=== PATIENT | female | born 1950 | race Caucasian/White ===

== ENCOUNTER 2018-10-14 02:30 | Emergency (ER) | payer OTHER, BC ==
[2018-10-14 03:19] VITALS: BP 153/79; PULSE 68; TEMP 98.2; BMI 23.8
[2018-10-14] MEDS ORDERED: KETOROLAC TROMETHAMINE 30 MG/1 ML VIAL IVPUSH ONE (03:30)
[2018-10-14] MEDS ORDERED: ONDANSETRON 4 MG/2 ML VIAL ONE (03:39)
[2018-10-14] MEDS ORDERED: KETOROLAC TROMETHAMINE 30 MG/1 ML VIAL ONE (03:39)
[2018-10-14] MEDS ORDERED: ONDANSETRON 4 MG/2 ML VIAL IVPUSH ONE (03:39)
--- NOTE | 2018-10-14 03:44 | PDOC ---
History of Present Illness - General Chief Complaint: Pain, Acute Stated Complaint: BACK PAIN - History of Present Illness Initial Comments: Natasha Lindquist is a 68yo woman with a PMH of HTN and HLD who presents with 8/ 10 right flank pain that radiates to the right groin. She states that she felt well until about 9pm last night, at which point she started having pain. The pain has been constantly present since it began, but the severity/intensity occurs in waves and increases from about a 7/10 to 10/ 10. The pain radiates around to the right groin. Ms Lindquist has also had nausea and multiple episodes of vomiting overnight. She has not had fevers, chills, abdominal pain, change in bowel habits and also denies dysuria, hematuria, urgency or frequency. She has not taken any medication for pain because of the frequent vomiting, and the pain was so severe that she wanted to be evaluated immediately. Ms Lindquist does report a previous kidney stone years ago, but she remembers the pain from that as being worse than the current pain. Past History - Past Medical History Allergies/Adverse Reactions: Allergies Allergy/AdvReac Type Severity Reaction Status Date / Time No Known Drug Allergies Allergy Unverified 10/14/18 02:58 Home Medications: Ambulatory Orders Enalapril Maleate 10 mg PO DAILY #90 02/21/15 Rosuvastatin Calcium [Crestor] 10 mg PO DAILY #90 02/21/15 Zoledronic Acid/Man/Water [Reclast 5 mg/100 ml -] 5 mg IV MONTHLY 02/21/15 Cholecalciferol (Vitamin D3) [Vitamin D3] 1,000 unit PO DAILY 03/08/15 Multivitamins [Multivit (RH Formulary)] 1 tab PO DAILY 03/08/15 Anemia: No Asthma: No Cancer: Yes (BREAST(RIGHT)) Cardiac Disorders: No CVA: No COPD: No CHF: No Dementia: No Diabetes: No GI Disorders: Yes (HEARTBURN) Disorders: No HTN: Yes Hypercholesterolemia: Yes Liver Disease: No Seizures: No Thyroid Disease: No - Surgical History Abdominal Surgery: Yes (INCISIONAL HERNIA) Appendectomy: No Cardiac Surgery: No Cholecystectomy: No Lung Surgery: No Neurologic Surgery: No Orthopedic Surgery: No - Suicide/Smoking/Psychosocial Hx Smoking History: Never smoked Have you smoked in the past 12 months: No If you are a former smoker, when did you quit?: 30 YEARS Information on smoking cessation initiated: No Hx Alcohol Use: No Drug/Substance Use Hx: No Substance Use Type: None Hx Substance Use Treatment: No Review of Systems - Review of Systems Comments:: General: No fevers, no chills, no weight or appetite change, no malaise HEENT: No changes in vision, no changes in hearing, no congestion, no sore throat CV: No chest pain, no palpitations, no LE edema Pulm: No SOB, no cough, no wheezing GI: No nausea or vomiting, no change in bowel habits, no melena : No frequency, no urgency, no dysuria. +right flank pain Musc: No back pain, no joint swelling, no recent injury Skin: No rash, no lesions, no erythema Endo: No excessive thirst, no heat/cold intolerance Heme: No unusual bruising or bleeding, no swollen glands Neuro: No syncope, no numbness/tingling, no focal weakness Vasc: No claudication Psych: No recent change in mood, no SI or HI *Physical Exam - Vital Signs Last Vital Signs Temp Pulse Resp BP Pulse Ox 98.2 F 68 22 H 153/79 99 10/14/18 02:58 10/14/18 02:58 10/14/18 02:58 10/14/18 02:58 10/14/18 02:58 - Physical Exam Comments: General: Uncomfortable, writhing on chair, moving between chair and bed HEENT: PERRL, EOMI, MMM, voice normal, normal neck ROM, no LAD Cards: RRR, no murmur appreciated Pulm: Comfortable on room air, clear to auscultation bilaterally Abd: Soft, nontender, nondistended : No CVA tenderness Ext: Atraumatic. No LE edema. ROM intact. Strength 5/5 and equal bilaterally Vasc: Extremities WWP. Palpable radial and pedal pulses bilaterally Skin: Normal color, no rashes or lesions Neuro: A&Ox3, CN grossly intact, normal speech, motor/sensory grossly intact and symmetric Psych: Mood appropriate to situation ED Treatment Course - LABORATORY CBC & Chemistry Diagram: 10/14/18 03:45 10/14/18 03:45 Medical Decision Making - Medical Decision Making 10/14/18 03:36 Natasha Lindquist is a 68yo woman with a PMH of HTN, HLD, and previous kidney stone many years ago who presents with R flank pain that radiates to the R groin and nausea/vomiting since 9pm yesterday. - History and physical exam most consistent with a kidney stone. UA and CT renal ordered to r/o stone. - Could also be UTI, appendicitis, or ovarian pathology. Will also be able to evaluate appendix and ovary on CT - CBC, CMP also sent to r/o abnormalities, infection, LINDA - Toradol and zofran for symptoms - Plan for bedside US once Ms Lindquist is more comfortable 10/14/18 05:25 - Labs reviewed. Slight leukocytosis to 10.4, not concerning. - UA with 1+ blood - CT completed. Shows 5mm right ureteral stone and mild-moderate right hydronephrosis. Also notes large cyst on lower pole of left kidney and multiple hypodense lesions in the liver suggestive of polycystic liver. - Discussed results with Ms Lindquist and her . She feels better following the toradol. Discussed using NSAIDs for pain control at home, encouraging PO fluid intake. Also informed her of the incidental left kidney and liver cysts noted on CT; will refer to nephrology and GI. - Ms Lindquist states understanding and agrees with the plan to discharge home with close follow up. Discussed with Dr Olivas. Chelsey Pichardo PGY1 *DC/Admit/Observation/Transfer Diagnosis at time of Disposition: Ureteral stone with hydronephrosis - Discharge Dispostion Disposition: HOME Condition at time of disposition: Stable Decision to Admit order: No - Referrals Referrals: Lissy Licea MD [Primary Care Provider] - Cayetano Guzman DO [Staff Physician] - Brady Gaytan MD [Staff Physician] - - Patient Instructions Printed Discharge Instructions: DI for Kidney Stones Additional Instructions: Discharge Instructions: - You were seen in the emergency department for right back/side pain that radiated around to the groin. You were found to have a kidney stone. The stone measures 5mm and is located in the right ureter. It is causing - The CT scan that found the kidney stone also noted a cyst on your left kidney as well as several cysts in your liver. Although these are probably not causing you any problems, you should follow up to have them evaluated with specialists. You have been referred to Dr Guzman in GI for the liver cysts. You have been referred to Dr Gaytan in nephrology for the kidney cyst. - For pain control at home, you should take 600mg ibuprofen (3 tablets of regular Advil/Motrin) every 6-8 hours. Make sure you take this medication with food or milk to prevent upset stomach. - If your pain continues for more than 2-3 days, please follow up with your primary physician - Seek medical care if you have severe or worsening pain, noticeable blood in your urine, or you continue vomiting and are unable to keep down food/drink. - Post Discharge Activity
[2018-10-14 03:50] LABS: BASO % 0.5 % (0-2.0); EOS % 0.8 % (0-4.5); HEMATOCRIT 40.5 % (32.4-45.2); LYMPH % 9.4 % (8-40); MCH 31.6 pg (25.7-33.7); MCHC 34.5 g/dl (32.0-36.0); MEAN CELL VOLUME 91.6 fl (80-96); MEAN PLT VOLUME 8.7 fl (7.5-11.1); MONO % 8.8 % (3.8-10.2); NEUT % 80.5 % (42.8-82.8); PLATELET COUNT 190 K/MM3 (134-434); RBC 4.42 M/mm3 (3.60-5.2); RDW 12.6 % (11.6-15.6); WHITE BLOOD COUNT 10.4 K/mm3 (4.0-10.0)
[2018-10-14 04:22] LABS: ALBUMIN 3.8 g/dl (3.4-5.0); ALK PHOS 66 U/L (45-117); ANION GAP 8 MMOL/L (8-16); BILIRUBIN,TOTAL 0.4 mg/dL (0.2-1); BLOOD UREA NITROGEN 16 mg/dL (7-18); CALCIUM 8.7 mg/dL (8.5-10.1); CHLORIDE 109 mmol/L (98-107); CO2 25 mmol/L (21-32); CREATININE 1.1 mg/dL (0.55-1.3); GLUCOSE,RANDOM 124 mg/dL (74-106); POTASSIUM 4.1 mmol/L (3.5-5.1); SGOT/AST 22 U/L (15-37); SGPT/ALT 39 U/L (13-61); SODIUM 142 mmol/L (136-145); TOT PROT 6.4 g/dl (6.4-8.2)
[2018-10-14] MEDS ORDERED: SODIUM CHLORIDE 0.9% 500 ML INFUS.BAG IV ONE (04:28)
--- NOTE | 2018-10-14 04:39 | PDOC ---
Attending Attestation - Resident Resident Name: Chelsey Pichardo - ED Attending Attestation I have performed the following: I have examined & evaluated the patient, The case was reviewed & discussed with the resident, I agree w/resident's findings & plan, Exceptions are as noted - HPI HPI: 10/14/18 04:35 68F with persistent, waxing, waning R flank px, radiating down to the groin. A/ w n/v, denies hematuria, dysuria, discharge - Physicial Exam PE: 10/14/18 04:41 agree with resident exam Abd soft, nt, nd No CVA tenderness - Medical Decision Making 10/14/18 04:41 R sided flank px, radiation to groin, consider nephrolithiasis, ascending gu infection, less likely hepatobiliary pathology f/u labs, consider imaging dispo per clinical course 10/14/18 05:26 5mm R sided stone, incidental liver/L renal cysts f/u gi, gu analgesia, flowmax, out patient tx of stone, f/u gu
[2018-10-14 04:56] LABS: URINE APPEARANCE CLEAR; URINE BILIRUBIN NEGATIVE (<2.0 mg/dL); URINE COLOR COLORLESS; URINE GLUCOSE (UA) NEGATIVE (NEGATIVE); URINE KETONE NEGATIVE (NEGATIVE); URINE LEUK ESTERASE NEGATIVE (NEGATIVE); URINE NITRITE NEGATIVE (NEGATIVE); URINE PROTEIN NEGATIVE (NEGATIVE); URINE UROBILINOGEN NEGATIVE mg/dL (0.2-1.0)
[2018-10-14 05:27] LABS: EPI CELLS RARE /HPF (FEW); URINE MUCUS RARE
== END 2018-10-14 05:50 | disposition home or self-care (01) ==
LOC: JER 02:30
PROC: 3E0333Z Introduction of Anti-inflammatory into Peripheral Vein, Percutaneous Approach (ICD-10-PCS; principal; 2018-10-14)
PROC: 3E033GC Introduction of Other Therapeutic Substance into Peripheral Vein, Percutaneous Approach (ICD-10-PCS; 2018-10-14)
PROC: 3E0337Z Introduction of Electrolytic and Water Balance Substance into Peripheral Vein, Percutaneous Approach (ICD-10-PCS; 2018-10-14)
DX: N13.2 Hydronephrosis with renal and ureteral calculous obstruction (principal); E78.5 Hyperlipidemia, unspecified; I10 Essential (primary) hypertension; Z87.891 Personal history of nicotine dependence
CPT/HCPCS: 36415; 74176; 80053; 81003; 81015; 85025; 99282-25